=== PATIENT | female | born 1980 | race Caucasian/White ===

== ENCOUNTER → 2016-12-01 | Day surgery (SDC) | payer OTHER ==
[~2016-12-01] MED LIST: ADDE20XR PO; BUPIVACAINE/EPINEPHRINE 0.5% PF 10 ML VIAL ONE; DEPA500T3 PO; FIORIC PO; KETOROLAC TROMETHAMINE 30 MG/ML (IVP) VIAL IV PUSH ONE; LACTATED RINGER'S 1000 ML INJ 1,000 ML ONE; LAMO100 PO; MAXA10TA2 PO; MEPERIDINE HCL 25 MG/ML VIAL ONE; MIDAZOLAM HCL 2 MG/2 ML VIAL ONE; ONDANSETRON HCL 4 MG/2 ML VIAL IV PUSH ONE; PROPOFOL 200 MG/20 ML AMP IV ONE; PROZ20CA11 PO; SUMA100T2 PO; TRAM50 PO
--- NOTE | 2016-12-02 19:57 | MP ---
cc: MIA ANDERSON DATE OF SURGERY 12/01/16 PREOPERATIVE DIAGNOSIS 1. Premenopausal menorrhagia 2. Secondary dysmenorrhea. 3. Tobacco user 4. Suspected endometrial polyp on office imaging 5. Intolerance of in office exam. POSTOPERATIVE DIAGNOSIS 1. Premenopausal menorrhagia 2. Secondary dysmenorrhea. 3. Tobacco user 4. Suspected endometrial polyp on office imaging 5. Intolerance of in office exam. 6. Postop day number zero. INDICATIONS Avani Gaston is a 36-year-old who has a history of delivery as well as progressively heavier more painful cycles over the past few years. Due to her age and her one pack per day smoking status, she is not a candidate for hormonal options to help control these symptoms and operative management was discussed. On office imaging, thickened endometrial stripe was seen with suspected endometrial polyps. The patient had read about the NovaSure ablation and, after counseling, she decided that she desired both polypectomy D&C and ablation and as such she was scheduled. PROCEDURE PERFORMED 1. Exam under anesthesia 2. Cervical dilation and endometrial curettage. 3. Myosure hysteroscopy. 4. NovaSure endometrial ablation. SURGEON Mia Anderson MD COMPLICATIONS None. COUNTS Sponge, lap, instrument and needle correct x2 at conclusion of procedure. ESTIMATED BLOOD LOSS 10 mL IV FLUIDS REPLACEMENT 700 mL URINE OUTPUT 50 mL of clear urine drained by in-and-out red rubber catheter using sterile technique at the beginning of the procedure. SPECIMEN Endometrial curetting INTRAOPERATIVE FINDINGS Anteflexed 8 week size uterus. On hysteroscopic Myosure evaluation, shaggy appearance globally to the endometrium but no distinct polyp or mass. On bimanual exam, adnexa were not palpable. They were without mass. PROCEDURE IN DETAIL After reviewing the informed consent, the patient was taken to the operating suite where a time-out was performed to identify the patient, planned procedure and any allergies to drugs or drug products. The patient was then placed in dorsal supine position and general anesthesia using LMA was administered without difficulty and found to be adequate. The patient was then gently elevated into high lithotomy position in candy cane stirrups. Perineum was prepped and draped in normal sterile fashion. Sterile red rubber catheter was used to drain the bladder. Sterile speculum was placed vaginally. Cervix was visualized, grasped on the anterior lip with a single-tooth tenaculum. Paracervical block was performed with 10 mL of 0.5% Marcaine with epinephrine. Cervix was sounded to 8 cm, 3 cm for the cervical length and 5 cm for the total cavity length. Progression of cervical dilators were then used to dilate up to accommodate the Myosure hysteroscope. Myosure device was primed. Device was introduced with visualization of the entire cavity with results as listed above. Myosure was then removed. A D&C was performed. Tissue was sent off to be evaluated by pathology lab. The NovaSure device was then introduced. Device was properly seated, passed all tests. Total activation time of 75 seconds after cavity width was determined to be 3.4 cm. Device was removed. There was minimal bleeding noted. Tenaculum and speculum were removed vaginally and procedure concluded at this point. Patient was brought back into dorsal supine position and awoken from anesthesia without complication. The patient tolerated the procedure well without complication. She will be discharged to home today from a postop area. She is aware of post precautions and has followup in the office. MD CHINA Kessler/ /8:15 AM /7:53 PM MTDD
== END | disposition home or self-care (01) ==
LOC: ESDC 06:04
PROVIDERS: ATTEND Obstetrics & Gynecology
DX: N92.4 Excessive bleeding in the premenopausal period (principal); N94.6 Dysmenorrhea, unspecified; F17.200 Nicotine dependence, unspecified, uncomplicated
CPT/HCPCS: 00952; 58563; 88305; J1885; J2175; J2250; J2405; J3010; J7120